=== PATIENT | female | born 1995 | race African-American/Black ===

== ENCOUNTER 2019-08-09 19:00 | Emergency (ER) | payer BC, OTHER ==
[~2019-08-09] VITALS: Ht 160 cm; Wt 59.0 kg
[2019-08-09] MEDS ORDERED: NOHOMEMEDICATIONS (20:03)
[2019-08-09] MEDS ORDERED: NAPROXEN500 MG PO (21:39)
[2019-08-09 21:50] VITALS: BP 110/62
== END 2019-08-09 21:50 | disposition home or self-care (01) ==
LOC: ER 19:00
DX: S93.692A Other sprain of left foot, initial encounter (principal); X50.1XXA Overexertion from prolonged static or awkward postures, initial encounter; Y92.89 Other specified places as the place of occurrence of the external cause; Y93.89 Activity, other specified; Y99.8 Other external cause status